=== PATIENT | female | born 1945 | race Caucasian/White ===

== ENCOUNTER → 2022-08-16 | Outpatient (CLI) | payer SELFPAY ==
--- NOTE | 2022-08-16 15:40 | EMB_PTH ---
PATIENT: UMBERTO CARRANZA LOC: [place] U#:[id number] AGE/SX: 76/F ROOM: RE08/16/[address]: Dr. Shaw Craranza MD : 1945 BED: DIS: 08/16/2022 SPEC #: [id number] RECD: 08/16/22 16:31 STATUS: HANNY RADHA #: [id number] HORTENSIA: 08/16/22 15:[address]: Shaw Carranza DEPT: SURGICAL PATHOLOGY RECD BY: Gina Momin Tissues: Endometrium, NOS Procedures: Surgery Specimen Level IV HEADER OPERATION: EMB PRE-OP DIAGNOSIS: PMB TISSUE SUBMITTED: EMB MICROSCOPIC DIAGNOSIS Endometrial biopsy: Strips of benign endometrial epithelium, consistent with atrophic endometrium and mucous. /SJ 08/18/22 COMMENT Correlation with clinical findings and appropriate follow up are necessary. MICROSCOPIC DESCRIPTION Slides are reviewed. GROSS DESCRIPTION Received in formalin is one container labeled with the patient name and designated EMB. The specimen consists of multiple fragments of bradford soft tissue mixed with mucoid tissue measuring in aggregate 1.5 x 1 x < 0.1 cm. The specimen is totally submitted in one cassette. / SJ:cc 08/17/2022 TC:4 CPT: 57371
== END | disposition home or self-care (01) ==
PROVIDERS: Visit Provider Obstetrics & Gynecology
DX: N39.0 Urinary tract infection, site not specified (principal)
CPT/HCPCS: 87086; 87088; 88305

== ENCOUNTER → 2022-10-10 | Outpatient (CLI) | payer SELFPAY | END | disposition home or self-care (01) | PROVIDERS: Visit Provider Urology | DX: R31.0 Gross hematuria (principal) | CPT/HCPCS: 87086; 87088 ==

== ENCOUNTER 2024-10-06 17:21 | Emergency (ER) | payer MEDICARE, SELFPAY ==
[2024-10-06 17:22] VITALS: BP 156/89; PULSE 67; RESP 16; TEMP 36.4; O2SAT 96; BMI 32.7
--- NOTE | 2024-10-06 18:45 | US_ITS ---
INDICATION: vag bleeding, thicken endometrial stripe on ct EXAMINATION: US Transvaginal Non-OB TECHNIQUE: Transvaginal (for optimal evaluation of the adnexa) pelvic ultrasound was performed. Grayscale, spectral waveform, and color flow Doppler evaluation of the adnexa. COMPARISON: None. FINDINGS: UTERUS: Retroverted. The uterus measures 5.8 cm in length. The endometrial stripe measures 1.7 cm in AP diameter which is thickened for a postmenopausal patient. Endometrium contains multiple cystic areas with some mild vascularity. RIGHT OVARY: Not visualized. LEFT OVARY: Measures 1.7 x 1.2 x 0.4 cm. Non-enlarged, normal echogenicity. There is normal arterial inflow and venous outflow present in the left ovary. FREE FLUID: None. US/Transvaginal Non- IMPRESSION: Abnormally thickened endometrium with multiple cystic spaces. Differential includes endometrial hyperplasia and endometrial carcinoma. Recommend HIGHWAY PAINTER HELPER consult and endometrial biopsy. Electronically Signed: Ronald Valencia MD at 19:42 EST ,
--- NOTE | 2024-10-06 18:51 | ED.VIS.FEGU ---
HPI HPI - Female History of Present Illness Chief Complaint: Vag Bleeding Narrative Narrative: Patient is a 78-year-old female with past medical history of uterine pleura labs, bladder prolapse who presents to the emergency department with a chief complaint of vaginal bleeding. Patient states that on Sunday her symptoms started and had been progressively worsening. States on Sunday she went to [facility] and had a workup performed there. She states that she had a CT and was given progesterone and was told to follow-up with her HORSES OR MULES TEAMSTER. She states back in August she had a uterine infection where she underwent D&C with biopsy and noted that she required IV antibiotics. Patient states that she was in the hospital for a few days. She states that she tried to call her HORSES OR MULES TEAMSTER in outpatient setting and she is having increasing pain and passing large clots and they were unable to get a hold of them. They called [facility] and they advised her to come here for the valuation management PFSH PFSH Allergy/AdvReac Type Severity Reaction Status Date / Time Sulfa (Sulfonamide Allergy Intermediate Nausea Verified 10/06/24 17:22 Antibiotics) Social History Smoking Status: Never smoker ROS ROS ED ROS Narrative Constitutional: Denies any fevers, chills, headaches, lightness, dizziness Abdomen: Denies abdominal pain nausea vomit diarrhea : Complains of vaginal bleeding as noted above denies any painful urination, hematuria, polyuria Neurological: Denies numbness, weakness, tingling Musculoskeletal: Denies back pain Skin: Denies rashes or lesions EXAM Physical Exam Narrative Exam Narrative: General: Patient lying in bed rest comfortably did not appear to be in acute distress Head: Atraumatic, normocephalic Eyes: PERRL bilateral, EOMI bladder, no conjunctival injection noted Neck: Soft, supple, trachea midline Cardiovascular: Regular rate and rhythm no murmurs gallops rubs noted Respiratory: Clear to auscultation bilaterally Abdomen: Soft, nondistended, tenderness to palpation in the suprapubic region no rebound or guarding on exam Extremities: +5/5 strength noted in the bilateral upper and lower extremities, radial pulses +2/4 in the bilateral upper extremities Neurological: Patient following commands knew that she was at [facility] years 2024 Skin: Warm, dry, intact Const Vital Signs: 10/06/24 17:22 10/06/24 20:17 Temperature 97.6 F L 98 F Temperature Source Temporal Pulse Rate 67 72 Respiratory Rate 16 18 Blood Pressure 156/89 H 187/92 H Blood Pressure Mean 111 123 Pulse Ox 96 95 Oxygen Delivery Method Room Air MDM MDM MDM Narrative Medical decision making narrative: Patient is a 78-year-old female who presented to the emerged part with a chief complaint of vaginal bleeding passing clots and pain. On the differential diagnose includes but limited to endometrial cancer, UTI. Once workup is obtained reviewed she will be reevaluated. Patient CT scan from the outside facility on 10/04/2024 was reviewed and showed a thickened endometrium in a postmenopausal female with a history of bleeding this highly concerning for endometrial carcinoma recommending gynecology follow-up. Possible infiltrate versus scarring in the right posterior sulcus. Cholelithiasis, diverticulosis, suspected uterine and bladder prolapse. Patient states that she has had uterine and bladder prolapse for approximately 2 years. Patient's CBC reviewed and showed no evidence leukocytosis white blood count normal at 7.2, hemoglobin 14.8, platelet count normal at 245. Patient sodium normal at 140, potassium normal 3.8, creatinine normal at 0.66. Patient's AST and ALT were 24 and 39 respectively lipase normal at 32. Patient's urinalysis showed 500 leukocyte esterase negative nitrates 10-25 white cells but no bacteria seen this was sent for culture she is not having urinary symptoms we will hold off on antibiotics for now. Patient's transvaginal ultrasound was reviewed and showed abnormally thickened endometrium multiple cyst spaces. Differential includes endometrial hyperplasia and endometrial carcinoma recommended HORSES OR MULES TEAMSTER follow-up with biopsy. Did provide a hard copy of the results to the patient. I called and discussed with on-call [facility] TEAM[facility] Bill who states that they will ensure that she gets an appointment in the near future. Patient was advised to call the office if she had not heard anything by Sunday. She states that she would prefer to follow-up with them as opposed to the physician that provided her with the previous D&C for her endometrial infection. At this point time patient would like to go home she was encouraged to return with worsening symptoms or any concerns as well as follow-up as noted above all question concerns answered she was discharged home in stable condition. Lab Data Labs: Laboratory Results - last 24 hr 10/06/24 10/06/24 17:50 18:56 WBC 7.2 RBC 4.87 Hgb 14.8 Hct 44.4 MCV 91.2 MCH 30.4 MCHC 33.3 RDW Std Deviation 44.2 H RDW Coeff of Ryan 13.2 Plt Count 245 MPV 10.9 Immature Gran % (Auto) 0.300 Neut % (Auto) 70.3 H Lymph % (Auto) 20.9 [place] % (Auto) 7.0 Eos % (Auto) 1.1 Baso % (Auto) 0.4 Absolute Neuts (auto) 5.1 Absolute Lymphs (auto) 1.51 Nucleated RBC % 0 Sodium 140 Potassium 3.8 Chloride 107 Carbon Dioxide 30.0 Anion Gap 2 L BUN 14 Creatinine 0.66 Estim Creat Clear Calc 53.54 Est GFR (MDRD) Af Amer 112 Est GFR (MDRD) Non-Af 93 BUN/Creatinine Ratio 21.2 H Glucose 94 Calcium 9.5 Total Bilirubin 0.40 AST 24 ALT 39 Alkaline Phosphatase 96 Total Protein 7.3 Albumin 4.0 Globulin 3.3 Albumin/Globulin Ratio 1.2 Lipase 32 Urine Color Yellow Urine Clarity Clear Urine pH 8.0 Ur Specific Lily 1.010 Urine Protein 15 H Urine Glucose (UA) Normal Urine Ketones Negative Urine Occult Blood 250 H Urine Nitrite Negative Urine Bilirubin Negative Urine Urobilinogen Normal Ur Leukocyte Esterase 500 H Urine RBC 0-5 SEEN Urine WBC 10-25 SEEN Ur Squamous Epith Cells 0-5 SEEN Ur Transition Epith Cell 5-10 SEEN Urine Bacteria 0 SEEN WBC Casts 0-5 SEEN Urine Mucus 0 SEEN Radiography Diagnostic Testing: Clinical Impression(s) from Imaging Studies Transvaginal US 10/06/24 18:45 IMPRESSION: Abnormally thickened endometrium with multiple cystic spaces. Differential includes endometrial hyperplasia and endometrial carcinoma. Recommend PROGRAMS MANAGER consult and endometrial biopsy. Electronically Signed: Ronald Valencia MD at 19:42 EST , Discharge Plan Triage Chief Complaint: Vag Bleeding ED Provider: Nomi Rubio Dx/Rx/DC Orders Clinical Impression: Thickened endometrium Primary Care Provider: Julio Lyon Referrals: Julio Lyon MD [Primary Care Provider] - Rosalina Bazzi MD [Med Staff - Active Staff] - Activity Restrictions/Additional Instructions: Follow-up with [facility]. If you have not heard from them by Sunday you need to call their office for an appointment. Return with worsening symptoms or any concerns. Print Language: Finnish Disposition Disposition: Home, Self Care
[2024-10-06 18:54] LABS: Absolute Lymphocyte Count 1.51 X10^3/uL (0.83-4.51); Absolute Neutrophil Count 5.1 X10^3/uL (2.0-7.7); Basophil# 0.03 X10^3/uL; Basophil% 0.4 % (0-1); Eosinophil# 0.08 X10^3/uL; Eosinophils% 1.1 % (0-5); Hematocrit 44.4 % (37-47); Hemoglobin 14.8 g/dL (12.0-15.0); Lymphocyte # 1.51 X10^3/ul (0.83-4.51); Lymphocyte % 20.9 % (19-41); Mean Corp Hgb Conc 33.3 g/dL (32-36); Mean Corpuscular Hgb 30.4 pg (27.0-32.0); Mean Corpuscular Volume 91.2 fL (81-99); Mean Platelet Vol. 10.9 fl (6.2-12.0); Monocyte# 0.51 X10^3/uL; NRBC Flagged by Analyzer 0 % (0-5); Neutrophil # 5.09 X10^3/uL (2.7-7.7); Neutrophil % 70.3 % (47-70); Platelet Count 245 K/mm3 (150-450); RBC Distribution Width CV 13.2 % (11.6-14.6); RBC Distribution Width SD 44.2 fl (35.1-43.9); Red Blood Count 4.87 M/mm3 (4.2-5.4); White Blood Count 7.2 K/mm3 (4.4-11.0)
[2024-10-06] MEDS: 0.9% Normal Saline (1000mL) 1,000 ML 999 ML IV (18:55)
[2024-10-06 19:04] LABS: Bacteria 0 SEEN /hpf (None Seen); Mucous, Urine 0 SEEN /hpf (<or=2+)
[2024-10-06 19:16] LABS: ALB/GLOB Ratio 1.2 RATIO (0.9-2.4); AST(SGOT) 24 U/L (15-37); Alanine Aminotransfer ALT/SGPT 39 U/L (13-56); Alkaline Phosphatase 96 U/L (45-117); Anion Gap 2 (5-15); BUN 14 mg/dL (7-18); BUN/Creat Ratio 21.2 RATIO (10-20); Calcium,Total 9.5 mg/dL (8.5-10.1); Chloride 107 mmol/L (98-107); Creatinine, Serum 0.66 mg/dL (0.55-1.02); EST Glomerular Filtration Rate 93 mL/min (>60); Est Glom Filt Rate - Afr Amer 112 mL/min (>60); Estimated Creatinine Clearance 53.54 ml/min; Globulin 3.3 g/dL (2.2-4.2); Glucose 94 mg/dL (74-106); Lipase 32 U/L (13-75); Potassium 3.8 mmol/L (3.5-5.1); Protein, Total 7.3 g/dL (6.4-8.2); Sodium Level 140 mmol/L (136-145)
[2024-10-06 19:29] LABS: Color, Urine Yellow (Yellow); Glucose, Dipstick Normal (Normal); Ketone-Dipstick Negative (Negative); Leukocyte Esterase-Dipstick 500 /ul (Negative); Nitrite-Dipstick Negative (Negative); Occult Blood-Urine 250 /ul (Negative); Protein-Dipstick 15 mg/dl (Negative); Urine Bilirubin Dipstick Negative (Negative); Urine Clarity Clear (Clear); Urine Urobilinogen Normal (Normal)
[2024-10-06 19:41] LABS: Red Blood Cells-Urine 0-5 SEEN /hpf (0-5); Squamous Epithelial Cells - UA 0-5 SEEN /hpf (5-10); Transitional Epithelial - Ur 5-10 SEEN /hpf (0-5); White Blood Cells 10-25 SEEN /hpf (0-5); White Cell Cast 0-5 SEEN /lpf (None Seen)
[2024-10-06 20:17] VITALS: BP 187/92; PULSE 72; RESP 18; TEMP 36.6; O2SAT 95
== END 2024-10-06 21:03 | disposition home or self-care (01) ==
PROVIDERS: Emergency Provider Emergency Medicine; PCP Family Medicine; Visit Provider Emergency Medicine
DX: R93.89 Abnormal findings on diagnostic imaging of other specified body structures (principal); R10.2 Pelvic and perineal pain
CPT/HCPCS: 76830; 80053; 81001; 83690; 85025; 87086; 96360; 99282; A4216

== ENCOUNTER → 2024-10-08 | Outpatient (CLI) | payer MEDICARE, SELFPAY ==
--- NOTE | 2024-10-08 | EMB_PTH ---
PATIENT: UMBERTO TIAN LOC: [place] U#:[id number] AGE/SX: 78/F ROOM: RE10/08/[address]: LIZY Lucio : 1945 BED: DIS: 10/08/2024 SPEC #: [id number] RECD: 10/08/24 15:39 STATUS: HANNY RADHA #: [id number] HORTENSIA: 10/08/24 00:[address]: Skylar Redman NP DEPT: SURGICAL PATHOLOGY RECD BY: Je Kay ENTERED: 10/09/24 10:11 SP TYPE: ENDOM BX/C LANDON DR: Dr. Julio Lyon MD Tissues: Endometrium, NOS Procedures: Surgery Specimen Level IV HEADER OPERATION: Endometrial biopsy PRE-OP DIAGNOSIS: Postmenopausal bleeding TISSUE SUBMITTED: Endometrial lining MICROSCOPIC DIAGNOSIS Endometrial biopsy: Strips of benign endometrial epithelium. Fragments of benign endocervical epithelium, blood and mucous. See comment. 10/10/2024 COMMENT Clinical correlation and appropriate follow up are necessary. Re-biopsy is suggested if clinically indicated. MICROSCOPIC DESCRIPTION Slides are reviewed. GROSS DESCRIPTION Received is one container labeled with the patient's name and not further designated. The specimen consists of a scant amount of soft tissue. The specimen is totally submitted for cell block preparation. 10/09/2024 TC:5 CPT:47613
== END | disposition home or self-care (01) ==
LOC: LABSPEC 14:09
PROVIDERS: PCP Family Medicine; Referring Provider Nurse Practitioner Women's Health; Visit Provider Nurse Practitioner Women's Health
DX: N95.0 Postmenopausal bleeding (principal)
CPT/HCPCS: 88305

== ENCOUNTER 2024-11-11 16:55 | Emergency (ER) | payer MEDICARE, SELFPAY ==
[2024-11-11 16:58] VITALS: BP 166/92; PULSE 78; RESP 18; TEMP 36.2; O2SAT 99; BMI 31.1
[2024-11-11 21:49] VITALS: BP 197/112; PULSE 65; RESP 22; O2SAT 97
[2024-11-11 21:52] LABS: Mucous, Urine 0 SEEN /hpf (<or=2+); Squamous Epithelial Cells - UA 0 SEEN /hpf (5-10)
[2024-11-11 21:54] LABS: Absolute Lymphocyte Count 2.12 X10^3/uL (0.83-4.51); Absolute Neutrophil Count 5.2 X10^3/uL (2.0-7.7); Basophil# 0.03 X10^3/uL; Basophil% 0.4 % (0-1); Eosinophil# 0.05 X10^3/uL; Eosinophils% 0.6 % (0-5); Hemoglobin 15.2 g/dL (12.0-15.0); Lymphocyte # 2.12 X10^3/ul (0.83-4.51); Lymphocyte % 26.5 % (19-41); Mean Corp Hgb Conc 33.8 g/dL (32-36); Mean Corpuscular Hgb 30.8 pg (27.0-32.0); Mean Corpuscular Volume 91.3 fL (81-99); Mean Platelet Vol. 9.8 fl (6.2-12.0); Monocyte# 0.59 X10^3/uL; Monocyte% 7.4 % (0-10); NRBC Flagged by Analyzer 0 % (0-5); Neutrophil % 64.9 % (47-70); Platelet Count 239 K/mm3 (150-450); RBC Distribution Width CV 13.1 % (11.6-14.6); RBC Distribution Width SD 43.4 fl (35.1-43.9); Red Blood Count 4.93 M/mm3 (4.2-5.4)
[2024-11-11 21:55] LABS: Color, Urine Yellow (Yellow); Glucose, Dipstick Normal (Normal); Ketone-Dipstick Negative (Negative); Leukocyte Esterase-Dipstick 100 /ul (Negative); Nitrite-Dipstick Negative (Negative); Occult Blood-Urine 150 /ul (Negative); Protein-Dipstick 15 mg/dl (Negative); Urine Bilirubin Dipstick Negative (Negative); Urine Clarity Clear (Clear); Urine Urobilinogen Normal (Normal); Urine pH 6.5 (5.0 - 8.0)
[2024-11-11 22:02] LABS: Bacteria RARE /hpf (None Seen); Red Blood Cells-Urine 10-25 SEEN /hpf (0-5); White Blood Cells 0-5 SEEN /hpf (0-5)
[2024-11-11 22:07] LABS: Anion Gap 7 (5-15); BUN 10 mg/dL (7-18); Chloride 104 mmol/L (98-107); Creatinine, Serum 0.77 mg/dL (0.55-1.02); EST Glomerular Filtration Rate 77 mL/min (>60); Est Glom Filt Rate - Afr Amer 94 mL/min (>60); Estimated Creatinine Clearance 52.17 ml/min; Glucose 93 mg/dL (74-106); Potassium 3.6 mmol/L (3.5-5.1); Sodium Level 140 mmol/L (136-145)
[2024-11-11 22:48] VITALS: BP 158/89; PULSE 61; RESP 14; TEMP 36.2; O2SAT 97
--- NOTE | 2024-11-11 22:55 | ED.VIS.FEGU ---
HPI HPI - Female History of Present Illness Chief Complaint: Vag Bleeding Informant: patient Narrative Narrative: Patient is a 78-year-old female with history of atrial fibrillation (on Eliquis), cystocele, postmenopausal bleeding and hypertension presenting with pelvic pain and vaginal bleeding. Patient states that [place] LICENSED ARCHITECT. She states that in August 2024 at [facility] she did have a D&C. She states she is doing well with but then after that started having regular cycles again. She notes that she has had a pelvic ultrasound and she had a CT at [facility]. She is due for a pelvic MRI on Sunday of this week. She states that for the past 3 days she has had vaginal bleeding again that did stop this afternoon, pelvic pain and when she wiped she felt that there is something hanging out. She states it is painful when her prolapse comes out. She denies any passage of clots. She states when she does have the bleeding she has lightheadedness, headaches, nausea and decreased appetite. States she feels weak and shaky. She notes that over the past 2 months has had a 15 pound unintentional weight loss. Has not had her evening medication but otherwise been compliant with her meds. No other complaints or concerns reported at this time. Patient states that she was put on Macrobid and Augmentin for concern of UTI yesterday. Chart review shows that on 10/08/2024 patient was on a course of medroxyprogesterone for her vaginal bleeding at that time. She also had an endometrial biopsy which did not show any abnormalities [facility] Medical History Afib HTN (hypertension) Home Medications ?Medication ?Instructions ?Recorded ?Last Taken ?Type amlodipine 5 mg tablet 5 mg PO QDAY 10/08/24 Unknown History apixaban 5 mg tablet (Eliquis) 5 mg PO BID 10/08/24 Unknown History flecainide 50 mg tablet 100 mg PO Q12H 10/08/24 Unknown History lisinopril 10 mg tablet 10 mg PO BID 10/08/24 Unknown History metoprolol succinate 50 mg 25 mg PO BID 10/08/24 Unknown History tablet,extended release 24 hr hydrocodone-acetaminophen 5-325mg 1 tab PO Q8H PRN Pain 3 days #10 11/11/24 Unknown Rx 5mg-325mg TABLETS Allergy/AdvReac Type Severity Reaction Status Date / Time Sulfa (Sulfonamide Allergy Intermediate Nausea Verified 11/11/24 16:57 Antibiotics) Family History Mother Cancer Brother Cancer Surgical History S/P ablation of atrial fibrillation Social History Smoking Status: Never smoker alcohol intake: never substance use type: does not use do you feel safe at home: Yes additional social history: ROS ROS ED Constitutional Constitutional ED: Denies chills or fever(s) Gastrointestinal Gastrointestinal: Reports nausea Genitourinary Genitourinary ED: Denies dysuria or hematuria Integumentary Denies rash Neurologic Neurologic: Reports headache(s) and weakness Hematologic/Lymphatic Hematologic/Lymphatic: Reports easy bleeding, easy bruising and other Details: On Eliquis EXAM Physical Exam Const Vital Signs: 11/11/24 16:58 11/11/24 21:49 11/11/24 22:48 Temperature 97.2 F L 97.2 F L Temperature Source Temporal Pulse Rate 78 65 61 Respiratory Rate 18 22 H 14 Blood Pressure 166/92 H 197/112 H 158/89 H Blood Pressure Mean 116 140 112 Pulse Ox 99 97 97 Oxygen Delivery Method Room Air Room Air Positive well nourished and well developed General Appearance ED: well developed and NAD; Negative for pallor HEENT Reports moist mucous membranes Eyes PERRL Neck supple Chest Wall inspection of chest normal Resp normal respiratory effort and clear to auscultation bilaterally Cardio regular rate and regular rhythm Rhythm: Negative for abnormal rhythm GI normal to inspection, nondistended, normoactive bowel sounds and soft to palpation Narrative: Pelvic exam- chaperoned Normal external genitalia. No significant prolapse present. No bleeding present at this time. Mild tenderness on bimanual exam along the anterior vaginal wall. Extremity normal to inspection and full ROM Neuro oriented x3 Sensorium / Orientation: alert Motor Exam: Negative for general weakness Psych mental status grossly normal Skin no rashes or lesions noted and no wounds General Skin Exam: Negative for pallor MDM MDM MDM Narrative Medical decision making narrative: Patient is evaluated for vaginal bleeding as well as pelvic pain associated with pelvic prolapse. She has a history of thickened endometrium, cystocele and incompetent uterine vaginal prolapse. She is on Eliquis. Patient is hypertensive in the emergency room but overall well-appearing. States her pain is mild and she has been will control with Tylenol. Differential includes pelvic infection, symptomatic anemia, dysfunctional uterine bleeding, irreducible prolapse and chronic pelvic pain. CBC shows a normal thoughts of the elevated hemoglobin of 15.2. BMP is normal. Urinalysis not consistent with infection does show some blood. Transvaginal ultrasound from 10/06/2024 is reviewed which shows abnormally thickened endometrium with multiple cystic spaces with differential include endometrial hyperplasia and endometrial carcinoma. Patient is hypertensive the emergency room and ordered her evening blood pressure medicine as well as a dose of Tylenol for pain. She is declining anything stronger. I did speak with Dr. Charles Guzman given this is already being worked up by for this. She has no further recommendations. It sounds like this can continue be worked up outpatient. She does not require admission for emergent surgery. She is comfortable with me prescribing course of pain medicine to be used as needed. Patient is given return precautions including heavy bleeding (soaking through a pad an hour for more than 2 hours in a row, feel like she is going to pass out, low blood pressures or severe pain prolapse that cannot be reduced at home. Patient agreeable this plan of care. Patient is she was ordered blood pressure medication but then her blood pressure did start to improve in the ER and she states she will just take her medicine when she gets home. She is offered further pain medicine in the ER but also declines/ Lab Data Labs: Laboratory Results - last 24 hr 11/11/24 11/11/24 21:37 21:46 WBC 8.0 RBC 4.93 Hgb 15.2 H Hct 45.0 MCV 91.3 MCH 30.8 MCHC 33.8 RDW Std Deviation 43.4 RDW Coeff of Ryan 13.1 Plt Count 239 MPV 9.8 Immature Gran % (Auto) 0.200 Neut % (Auto) 64.9 Lymph % (Auto) 26.5 [place] % (Auto) 7.4 Eos % (Auto) 0.6 Baso % (Auto) 0.4 Absolute Neuts (auto) 5.2 Absolute Lymphs (auto) 2.12 Nucleated RBC % 0 Sodium 140 Potassium 3.6 Chloride 104 Carbon Dioxide 29.0 Anion Gap 7 BUN 10 Creatinine 0.77 Estim Creat Clear Calc 52.17 Est GFR (MDRD) Af Amer 94 Est GFR (MDRD) Non-Af 77 BUN/Creatinine Ratio 13.0 Glucose 93 Calcium 10.0 Urine Color Yellow Urine Clarity Clear Urine pH 6.5 Ur Specific [place] 1.010 Urine Protein 15 H Urine Glucose (UA) Normal Urine Ketones Negative Urine Occult Blood 150 H Urine Nitrite Negative Urine Bilirubin Negative Urine Urobilinogen Normal Ur Leukocyte Esterase 100 H Urine RBC 10-25 SEEN Urine WBC 0-5 SEEN Ur Squamous Epith Cells 0 SEEN Urine Bacteria RARE Urine Mucus 0 SEEN Discharge Plan Triage Chief Complaint: Vag Bleeding ED Provider: Meredith Kwok Dx/Rx/DC Orders Clinical Impression: Postmenopausal bleeding, Cystocele with incomplete uterovaginal prolapse Instructions: Pelvic Organ Prolapse, ED Dysfunctional Uterine Bleeding Prescriptions: New hydrocodone-acetaminophen 5-325 mg tablet 1 tab PO Q8H PRN (Reason: Pain) 3 Days Qty: 10 0RF No Action lisinopril 10 mg tablet 10 mg PO BID Eliquis 5 mg tablet 5 mg PO BID metoprolol succinate 50 mg tablet extended release 24 hr 25 mg PO BID amlodipine 5 mg tablet 5 mg PO QDAY flecainide 50 mg tablet 100 mg PO Q12H Primary Care Provider: Julio Lyon Referrals: Julio Lyon MD [Primary Care Provider] - Syklar Redman NP, DRAWING KILN OPERATOR-C [Med Staff - Adv Practice Prof] - Activity Restrictions/Additional Instructions: Your hemoglobin is normal. Continue take your medications as prescribed. Please follow-up on Sunday for pelvic MRI as scheduled. If you develop severe bleeding (going through a pad an hour for more than 2 hours in a row), if like you are going to pass out or have severe pain please return to the emergency room. Print Language: Kenyan Disposition Disposition: Home, Self Care
== END 2024-11-11 23:22 | disposition home or self-care (01) ==
PROVIDERS: Emergency Provider Emergency Medicine; PCP Family Medicine; Visit Provider Emergency Medicine
DX: N95.0 Postmenopausal bleeding (principal); I48.91 Unspecified atrial fibrillation; I10 Essential (primary) hypertension; N81.2 Incomplete uterovaginal prolapse; Z79.01 Long term (current) use of anticoagulants; Z79.899 Other long term (current) drug therapy
CPT/HCPCS: 80048; 81001; 85025; 99284; A4216

== ENCOUNTER → 2024-11-14 | Outpatient (CLI) | payer MEDICARE, SELFPAY ==
--- NOTE | 2024-11-14 13:18 | MRI_ITS ---
PROCEDURE: MRI of the pelvis without and with intravenous contrast. REASON FOR EXAM: Bleeding since D and C August 2024. Pelvic pain. TECHNIQUE: Multiplanar, multisequence MRI images of the pelvis were obtained without and with intravenous contrast. 14 cc of Dotarem IV contrast was administered. COMPARISON: None available FINDINGS: The included osseous structures of the pelvis are unremarkable. There is some heterogeneous enhancement of the origin of the left hamstring complex image 22 of the axial postcontrast images, which could represent evidence of mild strain or partial tear in this location. The origin of the right hamstring complex is intact. No focal abnormality of the urinary bladder. No peripheral pelvic mass or adenopathy. The included bowel segments show no specific abnormality. No dominant adnexal lesion. There is moderate prolapse of the urinary bladder (image 14 of the sagittal T2 sequence). The uterus is partially retroverted. There is some lobulated fluid signal in the fundal portion of the endometrial canal measuring up to 1 cm in thickness on image 15 of the sagittal T2 sequence. No discrete enhancing mass of the cervix is demonstrated. No discrete measurable enhancing mass of the endometrium or uterine myometrium. MRI/Pelvis W/WO Contrast IMPRESSION: Lobulated abnormal 1 cm thick fluid signal in the fundal portion of the endomet rial canal. No discrete enhancing lesion of the uterine myometrium or endometrial canal. Given the patient's history of persis tent vaginal bleeding, and the 1 cm thick fluid signal of the endometrial canal, the possibility of endometrial neoplasm can no t be entirely excluded. Endometrial biopsy is suggested. No dominant adnexal lesion or pelvic adenopathy. No discrete cervical mass. Some heterogeneous enhancement of the origin of the left hamstring complex coul d be due to mild strain or partial tear in this location. Moderate bladder prolapse. Reading Location: [facility]
== END | disposition home or self-care (01) ==
LOC: MRI 13:13
PROVIDERS: PCP Family Medicine; Referring Provider Nurse Practitioner Women's Health; Visit Provider Nurse Practitioner Women's Health
DX: N95.0 Postmenopausal bleeding (principal); R93.89 Abnormal findings on diagnostic imaging of other specified body structures; R93.41 Abnormal radiologic findings on diagnostic imaging of renal pelvis, ureter, or bladder
CPT/HCPCS: 72197; A9575